=== PATIENT | female | born 1970 | race Caucasian/White ===

== ENCOUNTER 2017-12-30 06:09 | Day surgery (SDC) | payer BC ==
[2017-12-30] VITALS (8 sets, daily range): BP systolic 102–133; BP diastolic 56–79
[~2017-12-30] VITALS: Ht 179.1 cm; Wt 73.5 kg
[~2017-12-30 06:09] MED LIST: NKM; cefOXitin 1gm/D5W 55ml IVPB SCH
[2017-12-30] MEDS ORDERED: fentaNYL 100 mcg/2 mL IV ONE (07:04)
[2017-12-30] MEDS ORDERED: Propofol 200mg/20ml IV ONE (07:04)
[2017-12-30] MEDS ORDERED: Midazolam 2mg/2ml Inj ONE (07:04)
--- NOTE | 2017-12-30 07:09 | Anethesia Preoperative Eval ---
Anesthesia Pre-op PMH/ROS General Date of Evaluation: Dec 30, 2017 Anesthesiologist: Allen ASA Score: ASA 2 Mallampati Score Class I : Soft palate, uvula, fauces, pillars visible Class II: Soft palate, uvula, fauces visible Class III: Soft palate, base of uvula visible Class IV: Only hard plate visible Mallampati Classification: Class II Surgeon: Juan C Diagnosis: Uterine polyp Surgical Procedure: Hysteroscopy, resectoscope, polypectomy Anesthesia History: none Family History: no anesthesia problems Allergies: Coded Allergies: No Known Allergies (Unverified , 12/27/17) Medications: see eMAR Past Medical History Cardiovascular: Denies: HTN, CAD, PA, valve dz, arrhythmia, other Pulmonary: Denies: asthma, COPD, STACY, other Gastrointestinal/Genitourinary: Reports: GERD; Denies: CRI, ESRD, other Neurologic/Psychiatric: Denies: dementia, CVA, depression/anxiety, TIA, other Endocrine: Denies: DM, hypothyroidism, steroids, other HEENT: Denies: cataract (L), cataract (R), glaucoma, AMBLER (L), AMBLER (R), other Hematology/Immune: Denies: anemia, DVT, bleeding disorder, other Musculoskeletal/Integumentary: Denies: OA, RA, DJD, DDD, edema, other PSxH Narrative: c-spine sx, inguinal hernia sx, left 2nd toe sx Anesthesia Pre-op Phys. Exam Physician Exam Last Vital Signs Date Time Temp Pulse Resp B/P (MAP) Pulse Ox O2 Delivery O2 Flow Rate FiO2 12/30/17 06:51 98.2 89 20 133/79 (97) 96 98.2 12/30/17 06:46 Room Air Constitutional: NAD Cardiovascular: RRR Respiratory: CTA Airway Exam Mallampati Score: Class II MO: full ROM: full Teeth: intact Anesthesia Pre-op A/P Labs see chart Urine Test Test 12/30/17 06:20 Urine HCG, Qualitative Negative (NEGATIVE) Studies Pre-op Studies: EKG - sr Risk Assessment & Plan Assessment: ASA II Plan: GA Status Change Before Surgery: No Pre-Antibiotics Drug: Cefoxitin 1g Given Within 1 Hr of Incision: Yes JACQUE MONTOYA M.D. Dec 30, 2017 07:08
[2017-12-30] MEDS ORDERED: Ropivacaine 5mg/ml Vial 30ml INJ ONE (07:13)
[2017-12-30] MEDS ORDERED: Lidocaine 1% 10mg/ml/Epi 0.005mg/ml 30ml vial INJ ONE (07:13)
[2017-12-30] MEDS ORDERED: Bupivacaine 0.25% Inj 30ml INJ ONE (07:13)
[2017-12-30] MEDS ORDERED: cefOXitin 1gm Inj ONE (07:13)
[2017-12-30] MEDS ORDERED: LR 1000ml 1,000 ML IVLG SCH (07:21)
--- NOTE | 2017-12-30 07:23 | Immediate Post-Op Evaluation ---
Immediate Post-Op Evalulation Immediate Post-Op Evalulation Procedure: Hysteroscopy, resectoscope, polypectomy Date of Evaluation: Dec 30, 2017 Time of Evaluation: 08:52 IV Fluids: 800 Blood Products: 0 Estimated Blood Loss: min Urinary Output: 0 Blood Pressure Systolic: 106 Blood Pressure Diastolic: 56 Pulse Rate: 72 Respiratory Rate: 16 O2 Sat by Pulse Oximetry: 99 Temperature (Fahrenheit): 99.7 Pain Score (1-10): 0 Nausea: No Vomiting: No Complications 0 Patient Status: awake, reacts, patent, none Hydration Status: adequate Drug: Cefoxitin 1g Given Within 1 Hr of Incision: Yes Time Given: 07:50 JACQUE MONTOYA M.D. Dec 30, 2017 07:23
--- NOTE | 2017-12-30 07:23 | 48 Hour Post Anesthesia Eval ---
Post Anesthesia Evaluation Procedure: Hysteroscopy, resectoscope, polypectomy Date of Evaluation: Dec 30, 2017 Airway: patent Nausea: No Vomiting: No Pain Intensity: 0 Hydration Status: adequate Cardiopulmonary Status: aat baseline Mental Status/LOC: patient returned to baseline Post-Anesthesia Complications: 0 Follow-up care needed: ready to discharge JACQUE MONTOYA M.D. Dec 30, 2017 07:23
[2017-12-30] MEDS ORDERED: fentaNYL 100 mcg/2 mL IV PRN (07:30)
[2017-12-30] MEDS ORDERED: Ketorolac 30mg Inj IV PRN (07:30)
[2017-12-30] MEDS ORDERED: Midazolam 2mg/2ml Inj IVP PRN (07:30)
[2017-12-30] MEDS ORDERED: Hydromorphone 0.5mg/0.5ml inj IVP PRN (07:30)
[2017-12-30] MEDS ORDERED: DiphenhydrAMINE 50mg/ml Inj IVP PRN (07:30)
[2017-12-30] MEDS ORDERED: Labetalol 5mg/ml 20ml vial IV PRN (07:30)
--- NOTE | 2017-12-30 07:50 | Pre-Procedure Note/Attestation ---
Pre-Procedure Note/Attestation Complete Prior to Procedure Planned Procedure: not applicable Procedure Narrative: hysteroscopy, dilation and curettage Indications for Procedure Pre-Operative Diagnosis: polyp Attestation I attest that I discussed the nature of the procedure; its benefits; risks and complications; and alternatives (and the risks and benefits of such alternatives ), prior to the procedure, with the patient (or the patient's legal admissions representative). I attest that, if there was a reasonable possibility of needing a blood transfusion, the patient (or the patient's legal admissions representative) was given the [facility] standardized written summary, pursuant to the Mati Sarah Blood Safety Act ([place] Health and Safety Code # 1645, as amended). I attest that I re-evaluated the patient just prior to the surgery and that there has been no change in the patient's H&P, except as documented below: VENANCIO DHALIWAL Dec 30, 2017 07:50
[2017-12-30] MEDS ORDERED: NS Irrig 1000ml ONE (08:00)
[2017-12-30] MEDS ORDERED: Sterile Water Irrig 1000ml IRRIG ONE (08:00)
[2017-12-30] MEDS ORDERED: D5 1/2NS 1,000 ML IV SCH ×2 (08:00)
[2017-12-30] MEDS ORDERED: HYDROmorphone 1mg/ml Carpuject SUBQ PRN ×2 (08:00)
[2017-12-30] MEDS ORDERED: NS Irrig 4000ml IRRIG ONE (08:00)
[2017-12-30] MEDS ORDERED: Tylenol #3 tab (300mg/30mg) ORAL PRN ×2 (08:00)
[2017-12-30] MEDS ORDERED: Ketorolac 30mg Inj ONE (08:00)
[2017-12-30] MEDS ORDERED: Dexamethasone 4mg/ml vial ONE (08:00)
[2017-12-30] MEDS ORDERED: Norco 5mg/325mg tab ORAL PRN ×2 (08:00)
[2017-12-30] MEDS ORDERED: Lidocaine 1% MPF 10mg/ml 5ml ONE (08:00)
[2017-12-30] MEDS ORDERED: LR 1000ml ONE (08:00)
[2017-12-30] MEDS ORDERED: Sorbitol 2000ml Irrigation IRRIG ONE (08:20)
--- NOTE | 2017-12-30 08:46 | Brief Operative Note ---
Immediate Post Operative Note Operative Note Pre-op Diagnosis: endometrial polyp Procedure: Resection of polyp with resectoscopye, curettage, removal of endocervical polyp Post-op Diagnosis: same and endocervical polyp Post-op Diagnosis: same as pre-op plus - endocervial polyp Surgeon: marleny Anesthesiologist: leonel Anesthesia: general Specimen: yes Complications: none Condition: stable Fluids: crystalloid and sorbirtol for uterine distension with minimal deficit Estimated Blood Loss: minimal Implant(s) used?: No VENANCIO DHALIWAL Dec 30, 2017 08:46
--- NOTE | 2017-12-30 17:47 | Operative Note - Dictated ---
DATE OF OPERATION: 12/30/2017 PREOPERATIVE DIAGNOSES: Metromenorrhagia and endometrial polyp. POSTOPERATIVE DIAGNOSES: Metromenorrhagia, endometrial polyp, and endocervical polyp. SURGEON: Imelda Irizarry M.D. ANESTHESIOLOGIST: Dr. Ashleigh Delgado. ANESTHESIA: General endotracheal. BLOOD LOSS: Minimal. PROCEDURE: Hysteroscopy, resection of a polyp with a resectoscope, endometrial curettage, and removal of endocervical polyp. PROCEDURE IN DETAIL: After ensuring informed consent, the patient was taken to the operating room, where general anesthesia was induced. The patient was sterilely prepped and draped. Speculum was placed in the vagina. Cervix was grasped with a tenaculum. The endocervical polyp was seen protruding through the external cervical os. Using polyp forceps, it was grasped and twisted off. Next, cervix was easily dilated to a 10 Hegar dilator. Hysteroscope was placed inside the uterine cavity. Uterine cavity was distended with normal saline. A large polyp versus degenerating fibroid was observed and the posterior fundus. It was resected. Next, normal saline was allowed to escape from the uterus and the resectoscope was put together. Next, the resectoscope was placed inside the uterine cavity. Uterine cavity was distended with sorbitol and the resection was easily accomplished using fiber 6 passes of resectoscope. There was no fluid deficit. Next, endometrial curettage was performed and the resectoscope was placed back inside the uterine cavity. Uterine cavity appeared clear. Bilateral ostia were seen. Excellent hemostasis was assured with the resectoscope loop on coagulation setting and at the end of the procedure, all sorbitol was allowed to escape from the uterus. Excellent hemostasis was assured. All instrument and laps were removed from the vagina. At the end of the procedure, all instrument and lap count was correct x2. The patient was taken to the recovery area and extubated in stable condition. Imelda Irizarry M.D. DR: CARLOS JOB#: [id number] CC:
== END 2017-12-30 11:10 | disposition home or self-care (01) ==
LOC: SUR 06:09
DX: N92.1 Excessive and frequent menstruation with irregular cycle (principal); N84.0 Polyp of corpus uteri; N84.1 Polyp of cervix uteri; N88.8 Other specified noninflammatory disorders of cervix uteri; K21.9 Gastro-esophageal reflux disease without esophagitis
CPT/HCPCS: 58558; 81025; J0694; J1100; J1885; J2250; J2405; J2704; J3010; J7120; 94003; 94150